=== PATIENT | female | born 1940 | race Caucasian/White ===

== ENCOUNTER → 2017-04-06 | Outpatient (CLI) | payer MEDICARE, BC ==
--- NOTE | 2017-04-07 10:40 | XR ---
EXAMINATION TYPE: XR chest 2V DATE OF EXAM: 04/06/2017 COMPARISON: Prior chest x-ray 05/05/2016 HISTORY: Cough and chest pain TECHNIQUE: Frontal and lateral views of the chest are obtained. FINDINGS: There is no focal air space opacity, pleural effusion, or pneumothorax seen. The cardiac silhouette size is stable and enlarged. Prominent lung volumes suggest underlying COPD. Aortic stent graft is noted incidentally within the abdomen. The osseous structures are intact. IMPRESSION: No acute cardiopulmonary process. Exam is stable.
== END | disposition home or self-care (01) ==
LOC: RADXRMAIN 17:56
PROVIDERS: ATTEND Internal Medicine Geriatric Medicine
DX: R05 Cough (principal)
CPT/HCPCS: 71020

== ENCOUNTER → 2017-09-16 | Outpatient (CLI) | payer MEDICARE, BC ==
--- NOTE | 2017-09-16 16:43 | BD ---
EXAMINATION TYPE: MG DEXA axial skeleton. DATE OF EXAM: 09/16/2017 COMPARISON: NONE CLINICAL HISTORY: 76-year-old female age-related osteoporosis, screening Height: 66 Weight: 168 FRAX RISK QUESTIONS: Alcohol (3 or more units per day): N Family History (Parent hip fracture): N Glucocorticoids (More than 3mos): N (Ex: prednisone, prednisolone, methylprednisolone, dexamethasone, and hydrocortisone). History of Fracture in Adulthood: Y Secondary Osteoporosis: 1. Type 1 Diabetes: N 2. Hyperthyroidism: N 3. Menopause before 45: N 4. Malnutrition: N 5. Chronic liver disease: N Rheumatoid Arthritis: N Current Tobacco Use: N RISK FACTORS HISTORY OF: History of Wrist Fracture: Y, LEFT When: 3 YRS AGO Family History of Osteoporosis: N Active: Y Diet low in dairy products/other sources of calcium: N Postmenopausal woman: Y Take estrogen and/or progesterone medications: N Lost more than 2 inches in height since high school: N Frequent falls:N Poor Health: N Hyperparathyroidism: N Adrenal Insufficiency: N MEDICATIONS: Prednisone or other steroids: N Thyroid Medications: Y Which medication: Levothyroxine How Lon yrs Additional Medications: blood pressure Additional History: EXAM MEASUREMENTS: Bone mineral densitometry was performed using the [employer]. Bone mineral density as measured about the Lumbar spine is: ----- L1-L4(G/cm2): 1.338 T Score Values are as follows: ----- L2: 0.4 ----- L3: 1.2 ----- L4: 1.9 ----- L1-L4: 1.1 Bone mineral density has: baseline Bone mineral density about the R hip (g/cm2): 0.738 Bone mineral density about the L hip (g/cm2): 0.760 T Score values are as follows: -----R Neck: -2.2 -----L Neck: -2.0 -----R Total: -1.5 -----L Total: -1.4 Bone mineral density has: baseline IMPRESSION: Osteopenia (T Score between -2.5 and -1). There is slightly increased risk of fracture and the patient may be considered for treatment. Re-Screen 2-5 years. NOTE: T-SCORE=SD OF THE YOUNG ADULT MEAN.
== END | disposition home or self-care (01) ==
LOC: RADBDWWP 09-03 16:34
PROVIDERS: ATTEND Internal Medicine Geriatric Medicine
DX: M85.80 Other specified disorders of bone density and structure, unspecified site (principal)
CPT/HCPCS: 77080

== ENCOUNTER → 2017-09-16 | Outpatient (CLI) | payer MEDICARE, BC | END | disposition home or self-care (01) | LOC: LABWHC1 14:02 | PROVIDERS: ATTEND Internal Medicine Endocrinology, Diabetes & Metabolism | DX: E03.8 Other specified hypothyroidism (principal) | CPT/HCPCS: 36415; 84443 ==